=== PATIENT | female | born 1960 | race Caucasian/White ===

== ENCOUNTER 2018-02-19 07:56 | Emergency (ER) | payer BC ==
[2018-02-19] MEDS ORDERED: MAG HYDROX/AL HYDROX/SIMETH 30 ML UDC PO STA (08:15)
[2018-02-19] MEDS ORDERED: PHENobarb/HYOSCY/ATROPINE/SCOP 5 ML UDC PO STA (08:15)
[2018-02-19] MEDS ORDERED: LIDOCAINE VISCOUS 2% 15 ML UDC MM STA (08:15)
--- NOTE | 2018-02-19 08:19 | ED Physician Documentation ---
PD HPI CHEST PAIN - Stated complaint Stated Complaint: CHEST PX - History obtained from History obtained from: Patient - History of Present Illness Timing - onset: Last night Timing - onset during: Rest Timing - details: Still present Pain level max: 5 Pain level now: 3 Quality: Pressure Location: Left chest, Left shoulder/arm Worsened by: Movement Associated symptoms: No: Shortness of air, Diaphoresis, Nausea, Vomiting Similar symptoms before: Has not had sx before - Additional information Additional information: The patient is a 57-year-old female who presents with pain in her left shoulder and "pressure" in her left chest. Her symptoms started last night and have persisted since onset. The pain is worse with movement of her left arm. She reports severity of 5 out of 10 at its worst, and currently she rates it 3 out of 10 in severity. She denies associated shortness of breath, nausea or vomiting, or diaphoresis. She denies history of similar symptoms in the past. Cardiac risk factors are negative for cigarette smoking, diabetes, hypertension , or hyperlipidemia. Family history is unknown because the patient was adopted and does not know anything about her parents. Past surgical history is significant for bilateral mastectomies with left lymph node dissection. Review of Systems Constitutional: denies: Fever Nose: denies: Congestion Throat: denies: Sore throat Cardiac: reports: Chest pain / pressure Respiratory: denies: Dyspnea, Cough GI: denies: Abdominal Pain, Nausea, Vomiting : denies: Dysuria Skin: denies: Rash Musculoskeletal: reports: Extremity pain (Left shoulder). denies: Neck pain, Back pain Neurologic: denies: Focal weakness, Numbness, Headache PD PAST MEDICAL HISTORY - Past Medical History Cardiovascular: None Respiratory: None Endocrine/Autoimmune: None - Past Surgical History /[employer]: Other (Bilateral mastectomies) - Present Medications Home Medications: Ambulatory Orders Medication Instructions Recorded Confirmed Aspirin/Acetaminophen/Caffeine 1 tab PO DAILY 02/19/18 02/19/18 [Excedrin Extra Strength Caplet] - Allergies Allergies/Adverse Reactions: Allergies Allergy/AdvReac Type Severity Reaction Status Date / Time No Known Drug Allergies Allergy Verified 02/19/18 08:22 - Social History Does the pt smoke?: No PD ED PE NORMAL - Vitals Vital signs reviewed: Yes - General General: Alert and oriented X 3, Well developed/nourished - HEENT HEENT: Atraumatic, Moist mucous membranes, Pharynx benign - Neck Neck: Supple, no meningeal sign, No adenopathy, No JVD - Cardiac Cardiac: RRR, No murmur - Respiratory Respiratory: No respiratory distress, Clear bilaterally, Other (Tenderness to palpation if left anterior shoulder and chest, reproducing symptoms.) - Abdomen Abdomen: Soft, Non tender, No organomegaly - Back Back: No CVA TTP - Derm Derm: No rash - Extremities Extremities: No edema, No calf tenderness / cord - Neuro Neuro: Alert and oriented X 3, No motor deficit, No sensory deficit Results - Vitals Vitals: Vital Signs - 24 hr 02/19/18 08:05 Temperature 36.5 C Heart Rate 68 Respiratory 14 Rate Blood Pressure 119/94 H O2 Saturation 99 Oxygen O2 Source Room air - EKG (time done) 08:00 Rate: Rate (enter#) (64) Rhythm: NSR [place]: Normal Intervals: Normal VA QRS: Normal Ischemia: Normal ST segments Computer interpretation: Agree with computer - Labs Labs: Laboratory Tests 02/19/18 02/19/18 02/19/18 08:12 08:12 08:12 WBC 6.9 RBC 4.66 Hgb 13.6 Hct 40.4 MCV 86.6 MCH 29.2 MCHC 33.7 RDW 13.4 Plt Count 280 MPV 7.8 L Neut # 2.9 Lymph # 3.2 [place] # 0.5 Eos # 0.1 Baso # 0.1 Absolute Nucleated RBC 0.00 Nucleated RBC % 0.0 Sodium 137 Potassium 4.1 Chloride 101 Carbon Dioxide 26 Anion Gap 10.0 BUN 19 Creatinine 0.7 Estimated GFR (MDRD) 87 L Glucose 93 Calcium 9.9 Total Bilirubin 0.9 AST 30 ALT 20 Alkaline Phosphatase 53 Troponin I < 0.04 Total Protein 7.9 Albumin 4.4 Globulin 3.5 Albumin/Globulin Ratio 1.3 Lipase 34 - Rads (name of study) 1-view CXR Radiology: Prelim report reviewed, EMP read contemporaneously, See rad report ( No acute cardiopulmonary abnormality.) PD MEDICAL DECISION MAKING - ED course Complexity details: reviewed results, re-evaluated patient, considered differential, d/w patient ED course: The patient's presentation with left shoulder pain, is most likely due to musculoskeletal inflammation. Cardiac etiology was considered, but is less likely. EKG reveals no acute ischemic abnormalities, and troponin is normal. If the patient were having acute myocardial ischemia, I would expect troponin to be elevated given the patient's greater than 12 hour duration of symptoms. Her symptoms are exacerbated with movement of her left arm, and with palpation of her left anterior shoulder. I doubt gastroesophageal reflux, and there is no clinical evidence to suggest acute pulmonary etiology. I discussed with the patient the results of her workup, the likely diagnosis, symptomatic treatment and outpatient follow-up, as well as potentially worrisome signs or symptoms that should prompt reevaluation in the emergency department. Departure - Departure Disposition: 01 Home, Self Care Clinical Impression: Musculoskeletal chest pain Condition: Stable Instructions: ED Chest Pain Atypical Unkn Cause Comments: Although no diagnosis is 100% certain, the pain in your shoulder and chest appears most likely due to musculoskeletal inflammation, and does not appear to be cardiac related. You can use ibuprofen, up to 800 mg 3 times daily for its anti-inflammatory effect. Let pain be your guide to activity level. Follow-up with primary physician within 2 weeks. Call to schedule appointment. Return to the emergency department if you develop increasing chest pain, shortness of breath, or otherwise worsening symptoms.
[2018-02-19 08:24] LABS: BASOPHILS # (AUTO) 0.1 10^3/uL (0.0-0.1); BASOPHILS % (AUTO) 1.2 %; EOSINOPHILS # (AUTO) 0.1 10^3/uL (0.0-0.7); EOSINOPHILS % (AUTO) 2.1 %; HGB - HEMOGLOBIN 13.6 g/dL (12.0-16.0); LYMPHOCYTES # (AUTO) 3.2 10^3/uL (1.5-3.5); LYMPHOCYTES % (AUTO) 46.7 %; MEAN CORPUSCULAR HEMOGLOBIN 29.2 pg (27.0-31.0); MEAN CORPUSCULAR HGB CONC 33.7 g/dL (32.0-36.0); MEAN CORPUSCULAR VOLUME 86.6 fL (81.0-99.0); MEAN PLATELET VOLUME 7.8 fL (7.9-10.8); MONOCYTES # (AUTO) 0.5 10^3/uL (0.0-1.0); MONOCYTES % (AUTO) 7.8 %; NEUTROPHILS # (AUTO) 2.9 10^3/uL (1.5-6.6); NEUTROPHILS % (AUTO) 42.2 %; PLT - PLATELET COUNT 280 10^3/uL (130-450); RED BLOOD COUNT 4.66 10^6/uL (4.20-5.40); RED CELL DISTRIBUTION WIDTH 13.4 % (12.0-15.0); WHITE BLOOD COUNT 6.9 x10^3/uL (4.8-10.8)
--- NOTE | 2018-02-19 08:36 | XRAY Report ---
EXAM: CHEST RADIOGRAPHY EXAM DATE: 02/19/2018 08:27 AM. CLINICAL HISTORY: Chest pain. COMPARISON: None. TECHNIQUE: 1 view. FINDINGS: Lungs/Pleura: No focal opacities evident. No pleural effusion. No pneumothorax. Mediastinum: Within exam limitations, the cardiomediastinal contour is normal. Other: There are multiple surgical clips in the left axillary region and projecting over the bilatera l breasts. No acute osseous abnormality. IMPRESSION: No acute cardiopulmonary abnormality. [facility] Referring Provider Line: [phone] SITE ID: [id number]
--- NOTE | 2018-02-19 08:36 | XRAY Preliminary Report ---
Exam: XR CHEST 1 VIEW X-RAY IMPRESSION: No acute cardiopulmonary abnormality. [facility] SITE ID: [id number]
[2018-02-19 08:38] LABS: ALBUMIN 4.4 g/dL (3.2-5.5); ALBUMIN/GLOBULIN RATIO 1.3 (1.0-2.2); BILIRUBIN,TOTAL 0.9 mg/dL (0.2-1.0); CALCIUM 9.9 mg/dL (8.5-10.3); CREATININE 0.7 mg/dL (0.4-1.0); TOTAL PROTEIN 7.9 g/dL (6.7-8.2)
[2018-02-19] MEDS ORDERED: IBUPROFEN 800 MG TABLET PO STA (08:50)
[2018-02-19 09:12] VITALS: BP 125/68
== END 2018-02-19 09:12 | disposition home or self-care (01) ==
LOC: ED 07:56
DX: R07.89 Other chest pain (principal); M25.512 Pain in left shoulder
CPT/HCPCS: 36415; 71045; 80053; 83690; 84484; 85025; 93005; 99283; 99284; A9270

== ENCOUNTER 2022-01-29 14:34 | Outpatient (CLI) | payer BC ==
--- NOTE | 2022-01-29 15:31 | XRAY Report ---
PROCEDURE: Chest 2 View X-Ray INDICATIONS: COUGH TECHNIQUE: 2 view(s) of the chest. COMPARISON: February 19, 2018 FINDINGS: SUPPORT DEVICES: None. LUNGS/PLEURA: No focal consolidation, pleural effusion or space-occupying pneumothorax. MEDIASTINUM: The cardiomediastinal silhouette is within normal limits. BONES/SOFT TISSUES: No acute abnormality. Left axillary and bilateral chest wall surgical clips. IMPRESSION: 1.No acute cardiopulmonary abnormality. Reviewed by: Roby Ladd MD on 01/29/2022 3:30 PM PDT Approved by: Roby Ladd MD on 01/29/2022 3:30 PM PDT Station ID: [id number]
== END 2022-01-29 14:35 | disposition home or self-care (01) ==
LOC: DI.N 14:34
PROVIDERS: ATTEND Family Medicine
DX: R05.9 Cough, unspecified (principal)